=== PATIENT | male | born 1935 | race Two or more races ===

== ENCOUNTER 2023-12-27 18:47 | Inpatient (IN) | payer OTHER ==
[2023-12-27 19:54] LABS: #Basophils Less than 0.03 10x3/uL (0.0-0.2); %Basophils 0.1 % (0.0-1.0); %Eosinophils 0.3 % (0.0-10.0); %Lymphocytes 14.7 % (21.0-51.0); %Monocytes 7.4 % (0.0-10.0); %Neutrophils 77.2 % (42.0-75.0); Hematocrit 36.6 % (42.0-52.0); Hemoglobin 11.7 g/dL (14.0-18.0); Mean Corpuscular Hemoglobin 29.3 pg (27.0-31.0); Mean Corpuscular Volume 91.5 fL (78.0-98.0); Mean Platelet Volume 10.5 fL (7.4-10.4); Platelet Count 206 10x3/uL (130-400); RBC Distribution Width 13.5 % (11.5-14.5)
[2023-12-27 20:09] LABS: ALT (SGPT) 37 U/L (8-55); AST (SGOT) 25 U/L (5-34); Albumin 3.2 g/dL (3.4-4.8); Alkaline Phosphatase 118 U/L (40-110); Anion Gap 13 mmol/L (10-20); BUN (Urea Nitrogen) 23 mg/dL (8.4-25.7); Bilirubin, Total 0.8 mg/dL (0.2-1.2); Calc. Creatinine Clearance 0 mL/min (70-130); Calcium 8.8 mg/dL (7.8-10.44); Carbon Dioxide 26 mmol/L (23-31); Chloride 105 mmol/L (98-107); Estimated GFR 84; Globulin 2.9 g/dL (2.4-3.5); Glucose 134 mg/dL (83-110); INR-International Normal Ratio 1.1; PTT 35.8 sec (22.9-36.1); Potassium 4.8 mmol/L (3.5-5.1); Protein, Total 6.1 g/dL (5.8-8.1); Prothrombin Time 14.5 sec (12.0-14.7); Sodium 139 mmol/L (136-145)
[2023-12-27] MEDS ORDERED: Ondansetron ODT 4 MG TAB SL PRN (22:00)
[2023-12-27] MEDS ORDERED: Ondansetron PF 4 MG/2 ML Vial IVP PRN ×2 (22:00→22:16)
[2023-12-27] MEDS ORDERED: Cefepime 2 GM VIAL ONE (22:08)
[2023-12-27] MEDS ORDERED: Morphine 4 MG/ML VIAL ONE (22:08)
[2023-12-27] MEDS ORDERED: LevoFLOXacin 750 mg/D5W 150 ml Premix Bag ONE (22:08)
[2023-12-27] MEDS ORDERED: hydrALAZINE 20 MG/ML VIAL SLOW IVP PRN (22:16)
[2023-12-27] MEDS ORDERED: Ondansetron ODT 4 MG TAB PO PRN (22:16)
[2023-12-28] MEDS: Morphine 2 MG/ML VIAL SLOW IVP PRN (01:28)
[2023-12-28] MEDS: Vancomycin (BATCH) 1.5 GM in Premix 1 BAG IVPB SCH (01:30)
[2023-12-28 02:26] VITALS: BMI 24.0
[2023-12-28 04:45] LABS: Bacteria/HPF None Seen HPF (None Seen); Bilirubin Negative (Negative); Blood, Urine 1+ (Negative); CAUTI Indications for Culture Dysuria,urgency,freq; Clarity Turbid (Clear); Glucose, Urine (Dipstick) Normal (Negative); Ketone, Urine Trace mg/dL (Negative); Leukocyte 500 Leu/uL (Negative); Nitrite Negative (Negative); Protein, Urine (Dipstick) 70 mg/dL (Neg-Trace); RBC/HPF 21-50 HPF (0-3); Specific Gravity, Urine 1.018 (1.002-1.036); Squamous Epithelial None Seen HPF (0-3); Triple Phosphate Crystal 1+ HPF (None Seen); Urobilinogen 3 mg/dL (Less than 2); pH, Urine 8.5 (5.0-9.0)
[2023-12-28 04:48] LABS: Urine Culture Reflex No No
[2023-12-28 04:56] LABS: #Basophils Less than 0.03 10x3/uL (0.0-0.2); #Eosinphils Less than 0.03 10x3/uL (0.0-0.7); %Basophils 0.1 % (0.0-1.0); %Lymphocytes 4.7 % (21.0-51.0); %Monocytes 6.6 % (0.0-10.0); %Neutrophils 88.2 % (42.0-75.0); Hemoglobin 10.6 g/dL (14.0-18.0); Mean Corpuscular HGB CONC 32.1 g/dL (32.0-36.0); Mean Corpuscular Hemoglobin 29.2 pg (27.0-31.0); Mean Corpuscular Volume 90.9 fL (78.0-98.0); Mean Platelet Volume 11.2 fL (7.4-10.4); Platelet Count 182 10x3/uL (130-400); RBC Distribution Width 13.4 % (11.5-14.5); Red Blood Cell (RBC) Count 3.63 mill/uL (4.70-6.10)
[2023-12-28 05:09] LABS: Anion Gap 9 mmol/L (10-20); BUN (Urea Nitrogen) 21 mg/dL (8.4-25.7); Calc. Creatinine Clearance 62 mL/min (70-130); Calcium 8.4 mg/dL (7.8-10.44); Carbon Dioxide 24 mmol/L (23-31); Chloride 107 mmol/L (98-107); Estimated GFR 84; Glucose 131 mg/dL (83-110); Potassium 4.5 mmol/L (3.5-5.1); Sodium 135 mmol/L (136-145)
[2023-12-28] MEDS ORDERED: Labetalol HCl 100 MG/20 ML VIAL SLOW IVP PRN (06:08)
[2023-12-28] MEDS: Famotidine 20 MG TAB PO SCH (09:35)
[2023-12-28] MEDS: Terazosin HCl 5 MG CAP PO SCH (21:38)
[2023-12-28] MEDS: Digoxin 0.5 MG/2 ML AMP SLOW IVP SCH (21:38)
[2023-12-28] MEDS: LevoFLOXacin 750 mg/D5W 750 MG in Premix 1 BAG IVPB SCH (21:39)
[2023-12-29] MEDS ORDERED: CEFAZOLIN 2 GM in Sodium Chloride 0.9% 100 ML IVPB SCH (07:15)
[2023-12-29 07:41] LABS: #Basophils Less than 0.03 10x3/uL (0.0-0.2); #Eosinphils Less than 0.03 10x3/uL (0.0-0.7); %Basophils 0.1 % (0.0-1.0); %Monocytes 7.2 % (0.0-10.0); %Neutrophils 86.3 % (42.0-75.0); Hematocrit 31.1 % (42.0-52.0); Hemoglobin 10.2 g/dL (14.0-18.0); Mean Corpuscular HGB CONC 32.8 g/dL (32.0-36.0); Mean Corpuscular Hemoglobin 28.7 pg (27.0-31.0); Mean Corpuscular Volume 87.6 fL (78.0-98.0); Mean Platelet Volume 10.9 fL (7.4-10.4); Platelet Count 145 10x3/uL (130-400); RBC Distribution Width 13.3 % (11.5-14.5); Red Blood Cell (RBC) Count 3.55 mill/uL (4.70-6.10)
[2023-12-29] MEDS: traMADol HCl 50 MG TAB PO PRN (11:20)
[2023-12-29] MEDS: dilTIAZem 30 MG TAB PO SCH (17:13)
[2023-12-29] MEDS: Acetaminophen 325 MG TAB PO PRN (20:24)
[2023-12-30 04:43] LABS: #Basophils Less than 0.03 10x3/uL (0.0-0.2); #Eosinphils Less than 0.03 10x3/uL (0.0-0.7); %Basophils 0.1 % (0.0-1.0); %Lymphocytes 4.1 % (21.0-51.0); %Monocytes 7.1 % (0.0-10.0); %Neutrophils 88.2 % (42.0-75.0); Hemoglobin 9.4 g/dL (14.0-18.0); Mean Corpuscular HGB CONC 33.6 g/dL (32.0-36.0); Mean Corpuscular Hemoglobin 29.5 pg (27.0-31.0); Mean Corpuscular Volume 87.8 fL (78.0-98.0); Mean Platelet Volume 10.8 fL (7.4-10.4); Platelet Count 130 10x3/uL (130-400); RBC Distribution Width 13.1 % (11.5-14.5); Red Blood Cell (RBC) Count 3.19 mill/uL (4.70-6.10)
[2023-12-30] MEDS ORDERED: Piperacillin/Tazobactam 4.5 GM in Sodium Chloride 0.9% 100 ML IVPB SCH (08:30)
[2023-12-30] MEDS ORDERED: PROPOFOL 20 ML ONE (09:49)
[2023-12-30] MEDS ORDERED: fentaNYL 50 mcg/mL 1 mL Vial ONE (09:50)
[2023-12-30] MEDS ORDERED: Sodium Chloride 0.9% 250 ML 250 ML ONE (09:51)
[2023-12-30] MEDS ORDERED: Phenylephrine 10 MG/ML VIAL ONE (09:51)
[2023-12-30] MEDS ORDERED: Dexamethasone 4 mg/ml Vial ONE (09:54)
[2023-12-30] MEDS ORDERED: Ondansetron PF 4 MG/2 ML Vial ONE (09:54)
[2023-12-30] MEDS ORDERED: Sodium Chloride 0.9% 100 ML ONE (10:15)
[2023-12-30] MEDS ORDERED: CEFAZOLIN 2 GM VIAL ONE (10:15)
[2023-12-30] MEDS ORDERED: Promethazine HCl 25 MG/ML VIAL IM PRN (10:58)
[2023-12-30] MEDS ORDERED: Ondansetron HCl/PF 4 MG/2 ML Vial IVP PRN (10:58)
[2023-12-30] MEDS: Piperacillin/Tazobactam 3.375 GM in Sodium Chloride 0.9% 100 ML IVPB SCH ×2 (11:47→15:09)
[2023-12-30] MEDS: Digoxin 0.125 MG TAB PO SCH (15:12)
[2023-12-30] MEDS: CEFAZOLIN 2 GM in Sodium Chloride 0.9% 100 ML IVPB SCH (18:18)
[2023-12-31 05:16] LABS: #Basophils Less than 0.03 10x3/uL (0.0-0.2); #Eosinphils Less than 0.03 10x3/uL (0.0-0.7); %Basophils 0.1 % (0.0-1.0); %Lymphocytes 3.4 % (21.0-51.0); %Monocytes 7.3 % (0.0-10.0); %Neutrophils 88.7 % (42.0-75.0); Hematocrit 29.6 % (42.0-52.0); Mean Corpuscular HGB CONC 33.8 g/dL (32.0-36.0); Mean Corpuscular Hemoglobin 29.6 pg (27.0-31.0); Mean Corpuscular Volume 87.6 fL (78.0-98.0); Mean Platelet Volume 11.5 fL (7.4-10.4); Platelet Count 172 10x3/uL (130-400); Red Blood Cell (RBC) Count 3.38 mill/uL (4.70-6.10)
[2023-12-31] MEDS: dilTIAZem 30 MG TAB PO SCH (09:14)
[2023-12-31] MEDS: Apixaban 5 MG TAB PO SCH ×2 (12:07→20:58)
[2023-12-31] MEDS: Cefepime 1 GM in Sodium Chloride 0.9% 100 ML IVPB SCH (20:56)
[2023-12-31] MEDS: Ipratropium/Albuterol 3 ML NEB NEB PRN (22:49)
[2024-01-01 05:18] LABS: #Basophils Less than 0.03 10x3/uL (0.0-0.2); %Basophils 0.1 % (0.0-1.0); %Eosinophils 0.4 % (0.0-10.0); %Lymphocytes 5.4 % (21.0-51.0); %Monocytes 9.2 % (0.0-10.0); %Neutrophils 84.4 % (42.0-75.0); Hematocrit 29.1 % (42.0-52.0); Hemoglobin 9.4 g/dL (14.0-18.0); Mean Corpuscular HGB CONC 32.3 g/dL (32.0-36.0); Mean Corpuscular Hemoglobin 28.7 pg (27.0-31.0); Mean Corpuscular Volume 88.7 fL (78.0-98.0); Mean Platelet Volume 11.1 fL (7.4-10.4); Platelet Count 188 10x3/uL (130-400); Red Blood Cell (RBC) Count 3.28 mill/uL (4.70-6.10)
[2024-01-01] MEDS: Cefepime 1 GM VIAL ONE (07:59)
[2024-01-02 04:37] LABS: #Basophils Less than 0.03 10x3/uL (0.0-0.2); %Basophils 0.2 % (0.0-1.0); %Eosinophils 4.2 % (0.0-10.0); %Lymphocytes 10.8 % (21.0-51.0); %Monocytes 10.4 % (0.0-10.0); Hematocrit 27.8 % (42.0-52.0); Hemoglobin 9.2 g/dL (14.0-18.0); Mean Corpuscular HGB CONC 33.1 g/dL (32.0-36.0); Mean Corpuscular Hemoglobin 28.5 pg (27.0-31.0); Mean Corpuscular Volume 86.1 fL (78.0-98.0); Platelet Count 203 10x3/uL (130-400); RBC Distribution Width 12.8 % (11.5-14.5); Red Blood Cell (RBC) Count 3.23 mill/uL (4.70-6.10)
[2024-01-02] MEDS ORDERED: E-Z-HD 98% W/W 340GM BOT (x-ray ONLY) ONE (12:57)
[2024-01-03] MEDS: LevoFLOXacin 750 MG TAB PO SCH (05:57)
[2024-01-03 14:28] VITALS: BMI 24.0
[2024-01-04 22:24] VITALS: BP 92/54; TEMP 98.4
== END 2024-01-04 22:45 | DRG 853 ==
LOC: EEVIPCON 18:47 → ERS 18:47 → 2NO 21:57
PROVIDERS: ADMIT Surgery; ATTEND Surgery
PROC: 3E03329 Introduction of Other Anti-infective into Peripheral Vein, Percutaneous Approach (ICD-10-PCS; 2023-12-27)
PROC: 0QS606Z Reposition Right Upper Femur with Intramedullary Internal Fixation Device, Open Approach (ICD-10-PCS; principal; 2023-12-30)
DX: A41.9 Sepsis, unspecified organism (principal); J18.9 Pneumonia, unspecified organism; S72.141A Displaced intertrochanteric fracture of right femur, initial encounter for closed fracture; J44.0 Chronic obstructive pulmonary disease with (acute) lower respiratory infection; N39.0 Urinary tract infection, site not specified; W08.XXXA Fall from other furniture, initial encounter; R33.9 Retention of urine, unspecified; Z88.8 Allergy status to other drugs, medicaments and biological substances; M19.90 Unspecified osteoarthritis, unspecified site; N40.1 Benign prostatic hyperplasia with lower urinary tract symptoms; Z79.899 Other long term (current) drug therapy; I10 Essential (primary) hypertension; I48.91 Unspecified atrial fibrillation
CPT/HCPCS: 36415; 71045; 72170; 74230; 80048; 80053; 81001; 83605; 84145; 85025; 85610; 85730; 86850; 86900; 86901; 87040; 87086; 93005; 93306; 94640; 96374; 96375; C1713; G0390; J0692; J1100; J1160; J1956; J2270; J2272; J2371; J2405; J2543; J2704; J3010; J3370; J3490; J7050; J7620